=== PATIENT | male | born 1985 | race Caucasian/White ===

== ENCOUNTER 2016-04-22 19:09 | Emergency (ER) | payer BC ==
[~2016-04-22] VITALS: Ht 185.4 cm; Wt 94.3 kg
[2016-04-22 19:25] VITALS: TEMP 37.1; Ht 185.4 cm; Wt 94.3 kg
[2016-04-22] MEDS ORDERED: CEPH500C PO (20:03)
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
[2016-04-22 20:55] VITALS: BP 121/73; PULSE 75; O2SAT 99
== END 2016-04-22 20:56 | disposition home or self-care (01) ==
LOC: C.EDB 19:11 → C.EDD 20:56
DX: S61.012A Laceration without foreign body of left thumb without damage to nail, initial encounter (principal); W27.8XXA Contact with other nonpowered hand tool, initial encounter; F17.200 Nicotine dependence, unspecified, uncomplicated